=== PATIENT | male | born 1980 | race Caucasian/White ===

== ENCOUNTER → 2018-03-27 | Outpatient (CLI) | payer OTHER ==
--- NOTE | 2018-03-30 07:08 | US ---
EXAMINATION TYPE: US kidneys/renal and bladder DATE OF EXAM: 03/27/2018 COMPARISON: NONE CLINICAL HISTORY: D82.71 BACTERIURIA. Patient states no pain. EXAM MEASUREMENTS: Right Kidney: 9.1 x 5.3 x 4.9 cm Left Kidney: 10.1 x 5.2 x 5.2 cm Post Void Residual Volume: First void- 1017 mL Second void- 988.7 mL Right Kidney: Mild hydronephrosis Left Kidney: Mild hydronephrosis Bladder: Severely distended. Patient states when he voided both times he urinated a lot. Thickened bladder wall is suspected with trabeculation Bilateral Jets not seen Normal Post Void Residual: ABNORMAL Low-level internal echoes are present within the bladder. IMPRESSION: Bilateral hydronephrosis, abnormal post void residual volume, probable trabeculated bladder, correlat e for chronic bladder outlet obstruction. Probable internal debris within the bladder.
== END | disposition home or self-care (01) ==
LOC: RADUSWWP 15:24
PROVIDERS: ATTEND Family Medicine
DX: N13.30 Unspecified hydronephrosis (principal)
CPT/HCPCS: 76770

== ENCOUNTER 2024-11-30 20:37 | Emergency (ER) | payer OTHER ==
--- NOTE | 2024-11-30 22:03 | ED ---
Syncope HPI - General Chief Complaint: Syncope Stated Complaint: Syncope Time Seen by Provider: 11/30/24 21:43 Source: patient, EMS, RN notes reviewed Mode of arrival: EMS Limitations: no limitations - History of Present Illness Initial Comments: This is a 44-year-old male who presents to the emergency department for a syncopal episode. States he was outside playing [employer] when he developed sharp pain in his right leg and became dizzy and diaphoretic. He ended up passing out for a couple of seconds. He did not hit his head or sustain any injuries during this event. Denies any history of syncopal episodes in the past. States that he has been dealing with pain in the right knee for quite a while, however over the last couple of days it has started to travel up into the thigh and down into the calf. Denies any injuries or history of similar pains in the past. Denies any history of blood clots. Denies any chest pain or shortness of breath. States that aside from the leg pain he currently feels fine. - Related Data Previous Rx's Medication Instructions Recorded Apixaban [Eliquis Starter Pack 5 - 10 mg PO DIRECTED 30 Days 12/01/24 (for VTE)] #1 each Allergies Allergy/AdvReac Type Severity Reaction Status Date / Time No Known Allergies Allergy Verified 11/30/24 20:44 Review of Systems ROS Statement: Those systems with pertinent positive or pertinent negative responses have been documented in the HPI. ROS Other: All systems not noted in ROS Statement are negative. Past Medical History Past Medical History: No Reported History History of Any Multi-Drug Resistant Organisms: None Reported Additional Past Surgical History / Comment(s): ureter tubes Past Psychological History: No Psychological Hx Reported Smoking Status: Current every day smoker Past Alcohol Use History: Occasional Past Drug Use History: Marijuana General Exam Limitations: no limitations General appearance: alert, in no apparent distress Head exam: Present: atraumatic, normocephalic, normal inspection Eye exam: Present: normal appearance, PERRL, EOMI. Absent: scleral icterus, conjunctival injection, periorbital swelling Respiratory exam: Present: normal lung sounds bilaterally. Absent: respiratory distress, wheezes, rales, rhonchi, stridor Cardiovascular Exam: Present: normal rhythm, tachycardia Extremities exam: Present: other (Tenderness to palpation over the right thigh and calf. Limited range of motion to the right lower extremity. Mild calf swelling. No erythema or warmth. 2+ DP and PT pulses) Neurological exam: Present: alert, oriented X3, CN II-XII intact Psychiatric exam: Present: normal affect, normal mood Skin exam: Present: warm, dry, intact, normal color. Absent: rash Course Vital Signs 11/30/24 11/30/24 12/01/24 20:38 23:14 00:45 Temperature 97.9 F 99.3 F Pulse Rate 102 H 78 86 Respiratory 16 18 19 Rate Blood Pressure 138/89 178/118 177/119 O2 Sat by Pulse 97 100 99 Oximetry Medical Decision Making - Medical Decision Making This is a 44-year-old male who presents to the emergency department for a syncopal episode. Was pt. sent in by a medical professional or institution? @ -No Did you speak to anyone other than the patient for history? @ -No Did you review nursing and triage notes? @ -Yes, and I agree, it is accurate with regards to the patient's symptoms. Were old charts reviewed? @ -No Differential Diagnosis? @ -Differential Syncope: Valvular disease, hypertrophic cardiomyopathy, pulmonary embolism, tamponade, tachycardia, bradycardia, ND, hypovolemia, hemorrhage, dissection, anemia, intracranial hemorrhage, seizure, hypoglycemia, carbon monoxide poisoning, this is not meant to be an all-inclusive list. EKG interpreted by me (3pts min.)? @ -EKG interpreted by me demonstrating the following: Sinus tachycardia. Ventricular rate 103 bpm, MN interval 137 ms, QRS duration 93 ms, QTc 398 ms. X-rays interpreted by me (1pt min.)? @ -Chest x-ray obtained, my interpretation identifies no localized consolidations or infiltrates. X-ray of the right knee obtained. My interpret ation identifies no acute fractures. CT interpreted by me (1pt min.)? @ -CTA of the chest obtained. My interpretation identifies no pulmonary embolus. U/S interpreted by me (1pt. min.)? @ -Duplex ultrasound of the right lower extremity obtained. My interpretation identifies a DVT. What testing was considered but not performed? (CT, X-rays, U/S, labs)? Why? @ -None What meds were considered but not given? Why? @ -None Did you discuss the management of the patient with other professionals? @ -No Did you reconcile home meds? @ -No Was smoking cessation discussed for >3mins.? @ -I discussed smoking cessation for greater than 3 minutes. The risk of smoking were discussed with the patient including but not limited to risks of cancer, stroke, coronary artery disease and COPD. Also discussed with patient were multiple methods of quitting smoking. Lastly we discussed the financial cost of smoking. Was critical care preformed (if so, how long)? @ -No Were there social determinants of health that impacted care today? How? (Homelessness, low income, unemployed, alcoholism, drug addiction, transportation, low edu. Level, literacy, decrease access to med. care, custodial, re hab)? @ -No Was there de-escalation of care discussed even if they declined? (Discuss DNR or withdrawal of care, Hospice)? @ -No What co-morbidities impacted this encounter? (DM, HTN, Smoking, COPD, CAD, Cancer, CVA, Hep., AIDS, mental health diagnosis, sleep apnea, morbid obesity)? @ -Smoking Was patient admitted / discharged? @ -Discharged. Lab work demonstrates mild leukocytosis with a white blood cell count of 12.1. D-dimer significantly elevated at 31.66. Lab work otherwise unremarkable. Chest x-ray reveals no acute process. X-ray of the right knee also reveals no irregularities. Duplex ultrasound of the right lower extremity demonstrates a thrombus in the right proximal femoral vein through the popliteal vein and extending into the proximal interrogated calf veins. There is no proximal/central extension to the deep femoral vein or common femoral vein. Given the associated syncopal episode, CTA of the chest was obtained. No evidence of a pulmonary embolus was identified. They did note some peribronchial cuffing suspected to be chronic. Patient has no URI symptoms. Findings reviewed with the patient. Given that this has not progressed into a PE, advised that he can be discharged home with anticoagulation. However, he was given strict return parameters in that if he develops any chest pain or shortness of breath he needs to return to the emergency department immediately. He is also not currently established with a primary care provider and was given a list of local providers as well as vascular surgery to follow-up with. Advised he follow-up for reevaluation and discussion of how long he needs to be anticoagulated. Eliquis starter pack prescribed along with a savings card. Initial dose administered in the emergency department given that the patient was evaluated overnight. Patient discharged home in stable condition. Case discussed with ED attending Dr. Pope. Return precautions reviewed in depth, the patient is instructed to return to the emergency department with any new, worsening, or concerning symptoms. Patient verbalized understanding. Undiagnosed new problem with uncertain prognosis? @ -None Drug Therapy requiring intensive monitoring for toxicity (Heparin, Nitro, Insulin, Cardizem)? @ -None Were any procedures done? @ -None Diagnosis/symptom? @ -DVT right lower extremity, syncope Acute, or Chronic, or Acute on Chronic? @ -Acute Uncomplicated (without systemic symptoms) or Complicated (systemic symptoms)? @ -Uncomplicated Side effects of treatment? @ -None Exacerbation, Progression, or Severe Exacerbation] @ -Not applicable Poses a threat to life or bodily function? @ -Unlikely - Lab Data Result diagrams: 11/30/24 22:21 11/30/24 22:21 Lab Results 11/30/24 11/30/24 11/30/24 Range/Units 22:21 22:21 22:21 WBC 12.01 H (4.50-10.00) 10*3/uL RBC 4.42 (4.40-5.60) 10*6/uL Hgb 15.3 (13.0-17.0) g/dL Hct 44.6 (39.6-50.0) % MCV 100.9 H (80.0-97.0) fL MCH 34.6 H (27.0-32.0) pg MCHC 34.3 (32.0-37.0) g/dL Plt Count 256 (140-440) 10*3/uL MPV 10.1 (9.5-12.2) fL Immature Gran % (Auto) 0.5 % Neutrophils % 83.0 % Lymphocytes % 9.2 % Monocytes % 6.2 % Eosinophils % 0.7 % Basophils % 0.4 % Immature Gran # 0.06 H (0.00-0.04) 10*3/uL Neutrophils # 9.97 H (1.80-7.70) 10*3/uL Lymphocytes # 1.10 (0.90-5.00) 10*3/uL Monocytes # 0.74 (0.20-1.00) 10*3/uL Eosinophils # 0.09 (0.04-0.35) 10*3/uL Basophils # 0.05 (0.00-0.10) 10*3/uL PT 10.8 (10.0-12.5) sec INR 1.0 (<1.2) APTT 21.7 L (22.0-30.0) sec D-Dimer 31.66 H (<0.60) mg/L FEU Sodium 137 (137-145) mmol/L Potassium 4.8 (3.5-5.1) mmol/L Chloride 101 (98-107) mmol/L Carbon Dioxide 24 (22-30) mmol/L Anion Gap 12 mmol/L BUN 13 (9-20) mg/dL Creatinine 0.82 (0.66-1.25) mg/dL Est GFR (CKD-EPI)AfAm >90 (>60 ml/min/1.73 sqM) Est GFR (CKD-EPI)NonAf >90 (>60 ml/min/1.73 sqM) Glucose 112 H (74-99) mg/dL Calcium 9.2 (8.4-10.2) mg/dL Magnesium 1.9 (1.6-2.3) mg/dL Total Bilirubin 0.4 (0.2-1.3) mg/dL AST 30 (17-59) U/L ALT 19 (4-49) U/L Alkaline Phosphatase 89 (38-126) U/L Troponin I (0.000-0.034) ng/mL Total Protein 6.9 (6.3-8.2) g/dL Albumin 3.8 (3.5-5.0) g/dL Serum Alcohol <10 mg/dL 11/30/24 Range/Units 22:21 WBC (4.50-10.00) 10*3/uL RBC (4.40-5.60) 10*6/uL Hgb (13.0-17.0) g/dL Hct (39.6-50.0) % MCV (80.0-97.0) fL MCH (27.0-32.0) pg MCHC (32.0-37.0) g/dL Plt Count (140-440) 10*3/uL MPV (9.5-12.2) fL Immature Gran % (Auto) % Neutrophils % % Lymphocytes % % Monocytes % % Eosinophils % % Basophils % % Immature Gran # (0.00-0.04) 10*3/uL Neutrophils # (1.80-7.70) 10*3/uL Lymphocytes # (0.90-5.00) 10*3/uL Monocytes # (0.20-1.00) 10*3/uL Eosinophils # (0.04-0.35) 10*3/uL Basophils # (0.00-0.10) 10*3/uL PT (10.0-12.5) sec INR (<1.2) APTT (22.0-30.0) sec D-Dimer (<0.60) mg/L FEU Sodium (137-145) mmol/L Potassium (3.5-5.1) mmol/L Chloride (98-107) mmol/L Carbon Dioxide (22-30) mmol/L Anion Gap mmol/L BUN (9-20) mg/dL Creatinine (0.66-1.25) mg/dL Est GFR (CKD-EPI)AfAm (>60 ml/min/1.73 sqM) Est GFR (CKD-EPI)NonAf (>60 ml/min/1.73 sqM) Glucose (74-99) mg/dL Calcium (8.4-10.2) mg/dL Magnesium (1.6-2.3) mg/dL Total Bilirubin (0.2-1.3) mg/dL AST (17-59) U/L ALT (4-49) U/L Alkaline Phosphatase (38-126) U/L Troponin I <0.012 (0.000-0.034) ng/mL Total Protein (6.3-8.2) g/dL Albumin (3.5-5.0) g/dL Serum Alcohol mg/dL - Radiology Data Radiology results: report reviewed, image reviewed Disposition Clinical Impression: Right leg DVT, Syncope, Nicotine dependence Disposition: HOME SELF-CARE Instructions (If sedation given, give patient instructions): Apixaban (By mouth), Deep Vein Thrombosis (ED) Additional Instructions: Return to the emergency department with any new, worsening, or concerning symptoms, especially if you develop any chest pain or shortness of breath. Beg in taking the Eliquis as prescribed. Elevate the leg as much as possible and you can also use compression stockings. Take Tylenol as needed for discomfort. Make sure you become established with a primary care provider for ongoing medical care. You also need to follow-up with vascular surgery. These providers will determine how long you need to remain on the blood thinner. Prescriptions: Apixaban [Eliquis Starter Pack (for VTE)] 5 - 10 mg PO DIRECTED 30 Days #1 each Is patient prescribed a controlled substance at d/c from ED?: No Referrals: None,Stated [Primary Care Provider] - 1-2 days Derick Castillo DO [STAFF PHYSICIAN] - 1-2 days Forms: Area PCPs Time of Disposition: 00:27
[2024-11-30] MEDS: SODIUM CHLORIDE 0.9% 1,000 ML IV STA (22:20)
[2024-11-30 22:29] LABS: Basophils # (A) 0.05 10*3/uL (0.00-0.10); Basophils % (A) 0.4 %; Eosinophils # (A) 0.09 10*3/uL (0.04-0.35); Eosinophils % (A) 0.7 %; HCT 44.6 % (39.6-50.0); HGB 15.3 g/dL (13.0-17.0); Lymphocytes # (A) 1.10 10*3/uL (0.90-5.00); Lymphocytes % (A) 9.2 %; MCH 34.6 pg (27.0-32.0); MCHC 34.3 g/dL (32.0-37.0); MCV 100.9 fL (80.0-97.0); Monocytes # (A) 0.74 10*3/uL (0.20-1.00); Monocytes % (A) 6.2 %; Neutrophils # (A) 9.97 10*3/uL (1.80-7.70); Neutrophils % (A) 83.0 %; Platelet Count 256 10*3/uL (140-440); RBC 4.42 10*6/uL (4.40-5.60); RDW 13.2 % (11.5-14.5); WBC 12.01 10*3/uL (4.50-10.00)
[2024-11-30] MEDS: KETOROLAC 15 MG/ML 1 ML VIAL IVP STA (22:29)
[2024-11-30] MEDS: CYCLOBENZAPRINE 5 MG TAB PO STA (22:29)
[2024-11-30 22:40] LABS: ALT 19 U/L (4-49); AST 30 U/L (17-59); African American GFR (CKD) >90 (>60 ml/min/1.73 sqM); Albumin 3.8 g/dL (3.5-5.0); Alkaline Phosphatase 89 U/L (38-126); Anion Gap 12 mmol/L; Blood Urea Nitrogen 13 mg/dL (9-20); Calcium 9.2 mg/dL (8.4-10.2); Carbon Dioxide 24 mmol/L (22-30); Chloride 101 mmol/L (98-107); Glucose 112 mg/dL (74-99); Magnesium 1.9 mg/dL (1.6-2.3); Non-African American GFR(CKD) >90 (>60 ml/min/1.73 sqM); Potassium 4.8 mmol/L (3.5-5.1); Sodium 137 mmol/L (137-145); Total Protein 6.9 g/dL (6.3-8.2)
[2024-11-30 22:54] LABS: INR 1.0 (<1.2); Prothrombin Time 10.8 sec (10.0-12.5)
[2024-11-30 23:09] LABS: Partial Thromboplastin Time 21.7 sec (22.0-30.0)
--- NOTE | 2024-12-01 00:07 | US ---
EXAM: US Duplex Right Lower Extremity Veins CLINICAL HISTORY: Pain and swelling TECHNIQUE: Real-time duplex ultrasound scan of the right lower extremity veins integrating B-mode two-dimensional vascular structure, Doppler spectral analysis, color flow Doppler imaging and compression. COMPARISON: No relevant prior studies available. FINDINGS: Deep veins: Thrombus noted from the right proximal femoral vein through the popliteal vein and extending into the proximal interrogated calf veins. The extensive deep vein thrombotic material is occlusive throughout the femoral vein and partially within the popliteal vein. The distal right external iliac vein is compressible and is patent. The right common femoral vein in the proximal profunda femoral veins are patent. Superficial veins: No thrombus in the saphenofemoral junction. Soft tissues: No acute findings. No popliteal cyst. IMPRESSION: Thrombus noted from the right proximal femoral vein through the popliteal vein and extending into the proximal interrogated calf veins. The extensive deep vein thrombotic material is occlusive throughout the femoral vein and partially within the popliteal vein. No proximal/central extension to the deep femoral vein or common femoral vein. <MYCVCSECTION> Communications: 12/01/24 00:13 Call Doctor Regarding DVT – acute, progressing, called Dr. Arline Villegas on 12/01 00:13 (-04:00)
--- NOTE | 2024-12-01 00:09 | CT ---
EXAM: CT Angiography Chest With Intravenous Contrast CLINICAL HISTORY: Syncope, elevated d-dimer TECHNIQUE: Axial computed tomographic angiography images of the chest with intravenous contrast. CTDI is 17 mGy and DLP is 330.7 mGy-cm. This CT exam was performed using one or more of the following dose reduction techniques: automated exposure control, adjustment of the mA and/or kV according to patient size, and/or use of iterative reconstruction technique. MIP reconstructed images were created and reviewed. COMPARISON: No relevant prior studies available. FINDINGS: Pulmonary arteries: There is no evidence for pulmonary embolism. Aorta: The thoracic aorta is intact. No dissection or aneurysm. Lungs: Centrilobular emphysema, predominantly in the upper lobes. No focal airspace consolidation. Peribronchial cuffing noted centrally is suggested. Pleural space: Unremarkable. No significant effusion. No pneumothorax. Heart: The cardiac chambers are normal in size. No CT evidence for right heart strain. Bones/joints: No acute fracture. No dislocation. Soft tissues: Unremarkable. Lymph nodes: Incidental calcified left hilar and subcarinal lymph nodes. No lymphadenopathy. IMPRESSION: 1. There is no evidence for pulmonary embolism. 2. Centrilobular emphysema, predominantly in the upper lobes. No focal airspace consolidation. Peribronchial cuffing noted centrally is suggested. Suspect chronic changes; however, differential consideration includes inflammatory infectious bronchitis. No postobstructive pneumonitis. No pleural effusion or pneumothorax.
--- NOTE | 2024-12-01 00:12 | XR ---
EXAM: XR Chest, 2 Views CLINICAL HISTORY: Syncope TECHNIQUE: Frontal and lateral views of the chest. COMPARISON: No relevant prior studies available. FINDINGS: Lungs: No focal consolidation. The pulmonary vasculature demonstrates no significant radiographic abnormality. Incidental subcentimeter calcified granulomas in the left lingula. Pleural space: Unremarkable. No pneumothorax. No large pleural effusion. Heart: Unremarkable. No cardiomegaly. Mediastinum: Unremarkable. No significant abnormality identified. The trachea is midline. Bones/joints: Unremarkable. No acute fracture. IMPRESSION: No focal consolidation or acute cardiopulmonary process identified.
--- NOTE | 2024-12-01 00:13 | XR ---
EXAM: XR Right Knee, 3 Views CLINICAL HISTORY: Pain TECHNIQUE: Three views of the right knee. COMPARISON: No relevant prior studies available. FINDINGS: Bones/joints: Minimal joint space narrowing of the medial compartment. Minimal hypertrophic spurring involving the superior patella. Soft tissues: No suprapatellar joint effusion suggested in the lateral projection. The soft tissues are otherwise unremarkable. IMPRESSION: No acute findings involving the right knee.
[2024-12-01 00:48] VITALS: BP 177/119; PULSE 86; RESP 19; TEMP 99.3
[2024-12-01] MEDS: APIXABAN 5 MG TAB PO STA (00:48)
[2024-12-01] MEDS: ACET/COD 300 MG/30 MG STARTER PACK 6 TAB BTL PO STA (00:49)
== END 2024-12-01 00:55 | disposition home or self-care (01) ==
LOC: EC 20:37
DX: I82.401 Acute embolism and thrombosis of unspecified deep veins of right lower extremity (principal); R55 Syncope and collapse; F17.200 Nicotine dependence, unspecified, uncomplicated
CPT/HCPCS: 36415; 85379; 80053; 83735; 84484; 85025; 85610; 85730; 80320; 73562; 71046; 93971; 71275; 99285; 96374; 96361; J1885; Q9967